=== PATIENT | male | born 1955 | race Caucasian/White ===

== ENCOUNTER 2023-08-26 11:15 | Outpatient (CLI) | payer BC, MEDICARE ==
[~2023-08-26 11:15] MED LIST: FURO40TA4 PO; LOSA-418 PO; barium sulfate 450ml oral suspension ONE
== END 2023-08-26 23:59 | disposition home or self-care (01) ==
LOC: RAD 11:15
PROVIDERS: ATTEND Surgery
DX: Z01.818 Encounter for other preprocedural examination (principal); C61 Malignant neoplasm of prostate; E66.01 Morbid (severe) obesity due to excess calories; I10 Essential (primary) hypertension; E78.2 Mixed hyperlipidemia
CPT/HCPCS: 74240